=== PATIENT | male | born 1970 | race Caucasian/White ===

== ENCOUNTER → 2017-03-22 | Outpatient (CLI) | payer OTHER ==
[~2017-03-22] MED LIST: AUGMENTIN 875 M1 TAB PO; BENTYL10 MG PO; CITALOPRAM HYDR40 MG PO; CLARITIN10 MG PO; DIAZEPAM10 M1 PO; GABAPENTIN800 MG PO; MEDROL DOSEPAK4 MG PO; MOVANTIK25 MG PO; OMEPRAZOLE D/R20 MG PO; PROVENTIL0.09 MG/A1 INH; TIZANIDINE HCL4 MG PO; TOPIRAMATE100 M2 PO; TRAMADOL HCL50 MG PO
== END | disposition home or self-care (01) ==
LOC: RAD 14:05
DX: M48.07 Spinal stenosis, lumbosacral region (principal); M43.22 Fusion of spine, cervical region; M96.1 Postlaminectomy syndrome, not elsewhere classified

== ENCOUNTER → 2017-04-06 | Outpatient (CLI) | payer OTHER | END | disposition home or self-care (01) | LOC: RAD 10:18 | DX: M43.22 Fusion of spine, cervical region (principal) ==

== ENCOUNTER → 2020-04-24 | Outpatient (CLI) | payer MEDICARE ==
[2020-04-24 17:58] LABS: BASO # 0.1 10*3/uL (0.0-0.1); BASO % 0.7 % (0.0-1.0); BILIRUBIN Negative (Negative); BLOOD Negative (Negative); CLARITY Clear (Clear); COLOR Dark Yellow (Yellow); EOS # 0.2 10*3/uL (0.0-0.4); GLUCOSE Negative (Negative); HEMATOCRIT 44.7 % (42.0-52.0); KETONE Trace (Negative); LEUKO ESTERASE Negative (Negative); LYMPH % 13.8 % (27.0-41.0); MEAN CELL VOLUME 86.6 fl (80.0-94.0); MEAN CORPUSCULAR HGB 28.7 pg (27.0-31.0); MEAN CORPUSCULAR HGB CONC 33.1 g/dl (33.0-37.0); MONO # 0.6 10*3/uL (0.1-1.0); MONO % 8.2 % (3.0-9.0); NEUT # 5.6 10*3/uL (2.3-7.9); NITRITE Negative (Negative); PH 5.5 (4.5-8.0); PLATELET COUNT AUTOMATED 257 10*3/uL (130-400); RED BLOOD COUNT 5.16 10*6/uL (4.50-5.90); RED CELL DISTRI WIDTH 13.3 % (0-14.5); RETICULOCYTE % 0.74 % (0.50-2.50); SPECIFIC GRAVITY >= 1.030 (1.001-1.030); WHITE BLOOD COUNT 7.5 10*3/uL (4.8-10.8)
[2020-04-24 18:15] LABS: ALKALINE PHOSPHATASE 67 U/L (45-117); BUN 20 mg/dl (7-24); CHLORIDE 115 mmol/L (98-107); CHOLESTEROL 127 mg/dL (<200); CREATININE 1.17 mg/dL (0.70-1.30); GAMMA GLUTAMYL TRANSPEPTIDASE 10 U/L (15-85); HDL CHOLESTEROL 55 mg/dl (40-60); IRON 81 ug/dL (65-175); LDL CHOLESTEROL 58 mg/dL (9-159); SGOT/AST 8 IU/L (3-35); SGPT/ALT 16 U/L (12-78); SODIUM 144 mmol/L (136-145); TOTAL IRON BINDING CAPACITY 306 ug/dl (250-450); TOTAL PROTEIN 7.1 gm/dL (6.4-8.2); TRIGLYCERIDES 68 mg/dl (<150); VLDL CHOLESTEROL 14 mg/dL (6-40)
[2020-04-24 18:23] LABS: THYROID STIM HORMONE (HS) 0.172 uIU/ml (0.358-4.75)
[2020-04-24 18:24] LABS: BACTERIA TRACE; EPITHELIAL CELLS 0-2; RBC 0-2 rbc/hpf (0-2)
[2020-04-24 18:50] LABS: FERRITIN 67.6 ng/mL (22.0-322.0); VITAMIN D, 25-HYDROXY 10.5 ng/mL (30-100)
== END | disposition home or self-care (01) ==
LOC: LAB 17:20
PROVIDERS: ATTEND Family Medicine
DX: Z12.5 Encounter for screening for malignant neoplasm of prostate (principal); R53.83 Other fatigue; E55.9 Vitamin D deficiency, unspecified; E78.5 Hyperlipidemia, unspecified; R79.89 Other specified abnormal findings of blood chemistry

== ENCOUNTER → 2020-11-25 | Outpatient (CLI) | payer MEDICARE ==
[2020-11-25 14:37] LABS: BASO # 0.1 10*3/uL (0.0-0.1); BASO % 1.3 % (0.0-1.0); EOS # 0.3 10*3/uL (0.0-0.4); EOS % 7.2 % (1.0-4.0); HEMATOCRIT 42.1 % (42.0-52.0); LYMPH # 0.8 10*3/uL (1.3-4.4); LYMPH % 18.1 % (27.0-41.0); MEAN CELL VOLUME 84.4 fl (80.0-94.0); MEAN CORPUSCULAR HGB 28.7 pg (27.0-31.0); MEAN PLATELET VOLUME 10.1 fl (9.6-12.3); MONO # 0.6 10*3/uL (0.1-1.0); NEUT # 2.8 10*3/uL (2.3-7.9); PLATELET COUNT AUTOMATED 235 10*3/uL (130-400); RED BLOOD COUNT 4.99 10*6/uL (4.50-5.90); RED CELL DISTRI WIDTH 13.3 % (0-14.5); RETICULOCYTE % 0.96 % (0.50-2.50); WHITE BLOOD COUNT 4.6 10*3/uL (4.8-10.8)
[2020-11-25 15:08] LABS: ALBUMIN 3.7 gm/dl (3.1-4.5); ALKALINE PHOSPHATASE 60 U/L (45-117); BUN 18 mg/dl (7-24); CHLORIDE 113 mmol/L (98-107); CHOLESTEROL 145 mg/dL (<200); CREATININE 1.12 mg/dL (0.70-1.30); GAMMA GLUTAMYL TRANSPEPTIDASE 14 U/L (15-85); IRON 104 ug/dL (65-175); LDL CHOLESTEROL 70 mg/dL (9-159); POTASSIUM 3.5 mmol/L (3.5-5.1); SGOT/AST 8 IU/L (3-35); SGPT/ALT 16 U/L (12-78); SODIUM 143 mmol/L (136-145); TOTAL IRON BINDING CAPACITY 251 ug/dl (250-450); TOTAL PROTEIN 6.8 gm/dL (6.4-8.2); TRIGLYCERIDES 122 mg/dl (<150)
[2020-11-25 15:14] LABS: THYROID STIM HORMONE (HS) 0.374 uIU/ml (0.358-4.75)
[2020-11-25 16:16] LABS: BILIRUBIN Negative (Negative); BLOOD Negative (Negative); CLARITY Clear (Clear); COLOR Yellow (Yellow); GLUCOSE Negative (Negative); KETONE Trace (Negative); LEUKO ESTERASE Negative (Negative); NITRITE Negative (Negative); SPECIFIC GRAVITY 1.025 (1.001-1.030)
[2020-11-25 16:20] LABS: FERRITIN 56.3 ng/mL (22.0-322.0); VITAMIN D, 25-HYDROXY 23.2 ng/mL (30-100)
[2020-11-25 16:33] LABS: CALCIUM OXALATE CRYSTALS 3+
[2020-11-25 16:34] LABS: BACTERIA TRACE; MUCOUS 3+
== END | disposition home or self-care (01) ==
LOC: LAB 13:48
PROVIDERS: ATTEND Family Medicine
DX: R79.89 Other specified abnormal findings of blood chemistry (principal); R53.83 Other fatigue; E55.9 Vitamin D deficiency, unspecified; R74.8 Abnormal levels of other serum enzymes

== ENCOUNTER 2021-04-06 23:21 | Emergency (ER) | payer OTHER, MEDICARE ==
[~2021-04-06] VITALS: Ht 185.4 cm; Wt 83.5 kg
[2021-04-06] MEDS ORDERED: MORPHINE SULFAT15 MG PO (23:55)
[2021-04-07] MEDS ORDERED: METHOCARBAMOL500 M1 PO (01:31)
[2021-04-07] MEDS ORDERED: NAPROXEN250 MG PO (01:31)
== END 2021-04-07 01:41 | disposition home or self-care (01) ==
LOC: ED 23:21
DX: S39.012A Strain of muscle, fascia and tendon of lower back, initial encounter (principal); S16.1XXA Strain of muscle, fascia and tendon at neck level, initial encounter; Z79.899 Other long term (current) drug therapy; W30.81XA Contact with agricultural transport vehicle in stationary use, initial encounter; Y93.I9 Activity, other involving external motion; Y92.488 Other paved roadways as the place of occurrence of the external cause; Y99.8 Other external cause status

== ENCOUNTER → 2021-09-03 | Outpatient (CLI) | payer MEDICARE ==
[~2021-09-03] MED LIST changes: +METHOCARBAMOL500 M1 PO; +MORPHINE SULFAT15 MG PO; +NAPROXEN250 MG PO
[2021-09-03 18:46] LABS: BASO # 0.1 10*3/uL (0.0-0.1); BASO % 0.8 % (0.0-1.0); EOS # 0.2 10*3/uL (0.0-0.4); EOS % 2.1 % (1.0-4.0); HEMATOCRIT 42.4 % (42.0-52.0); LYMPH # 1.5 10*3/uL (1.3-4.4); LYMPH % 18.5 % (27.0-41.0); MEAN CELL VOLUME 84.5 fl (80.0-94.0); MEAN CORPUSCULAR HGB 28.9 pg (27.0-31.0); MEAN CORPUSCULAR HGB CONC 34.2 g/dl (33.0-37.0); MEAN PLATELET VOLUME 9.9 fl (9.6-12.3); MONO # 0.9 10*3/uL (0.1-1.0); MONO % 10.9 % (3.0-9.0); NEUT # 5.4 10*3/uL (2.3-7.9); NEUT % 67.4 % (47.0-73.0); PLATELET COUNT AUTOMATED 274 10*3/uL (130-400); RED BLOOD COUNT 5.02 10*6/uL (4.50-5.90); RED CELL DISTRI WIDTH 13.4 % (0-14.5); RETICULOCYTE % 0.88 % (0.50-2.50)
[2021-09-03 18:51] LABS: BILIRUBIN Negative (Negative); BLOOD Negative (Negative); CLARITY Clear (Clear); COLOR Yellow (Yellow); GLUCOSE Negative (Negative); KETONE Trace (Negative); LEUKO ESTERASE Negative (Negative); NITRITE Negative (Negative); PH 5.5 (4.5-8.0)
[2021-09-03 19:05] LABS: ALKALINE PHOSPHATASE 59 U/L (45-117); BUN 12 mg/dl (7-24); CHLORIDE 114 mmol/L (98-107); CHOLESTEROL 115 mg/dL (<200); CREATININE 1.18 mg/dL (0.70-1.30); GAMMA GLUTAMYL TRANSPEPTIDASE 9 U/L (15-85); IRON 47 ug/dL (65-175); LDL CHOLESTEROL 38 mg/dL (9-159); POTASSIUM 3.5 mmol/L (3.5-5.1); SGOT/AST 6 IU/L (3-35); SGPT/ALT 12 U/L (12-78); SODIUM 145 mmol/L (136-145); TOTAL IRON BINDING CAPACITY 245 ug/dl (250-450); TOTAL PROTEIN 7.2 gm/dL (6.4-8.2); TRIGLYCERIDES 124 mg/dl (<150)
[2021-09-03 19:10] LABS: THYROID STIM HORMONE (HS) 0.248 uIU/ml (0.358-4.75)
[2021-09-03 19:18] LABS: EPITHELIAL CELLS 0-2; RBC 0-2 rbc/hpf (0-2)
[2021-09-03 19:30] LABS: FERRITIN 71.5 ng/mL (22.0-322.0); VITAMIN D, 25-HYDROXY 56.1 ng/mL (30-100)
[2021-09-05 06:07] LABS: HBSAG Negative (Negative); HEP B CORE AB, IGM Negative (Negative); HEPATITIS C ANTIBODY <0.1 (0.0-0.9)
== END | disposition home or self-care (01) ==
LOC: LAB 18:20
PROVIDERS: ATTEND Family Medicine
DX: E78.5 Hyperlipidemia, unspecified (principal); E55.9 Vitamin D deficiency, unspecified; R79.89 Other specified abnormal findings of blood chemistry; R53.83 Other fatigue; R74.8 Abnormal levels of other serum enzymes; Z12.5 Encounter for screening for malignant neoplasm of prostate

== ENCOUNTER 2023-01-26 23:52 | Emergency (ER) | payer OTHER, MEDICARE ==
[~2023-01-26] VITALS: Ht 185.4 cm; Wt 70.8 kg
[2023-01-27] MEDS ORDERED: NAPROXEN250 MG PO (01:51)
[2023-01-27] MEDS ORDERED: METHOCARBAMOL500 M1 PO (01:51)
== END 2023-01-27 01:59 | disposition home or self-care (01) ==
LOC: ED 23:52
DX: S63.004A Unspecified dislocation of right wrist and hand, initial encounter (principal); S00.83XA Contusion of other part of head, initial encounter; R07.89 Other chest pain; I10 Essential (primary) hypertension; F32.A Depression, unspecified; Y08.89XA Assault by other specified means, initial encounter; Y93.89 Activity, other specified; Y92.410 Unspecified street and highway as the place of occurrence of the external cause; Y99.8 Other external cause status